=== PATIENT | female | born 1935 | race Caucasian/White ===

== ENCOUNTER 2017-05-14 10:11 | Observation (INO) | payer MEDICARE, OTHER ==
[2017-05-14] MEDS ORDERED: Nitroglycerin 2% Ointment 1 INCH/1 GM Packet ONE (10:57)
[2017-05-14 11:07] LABS: #Basophils 0.1 thou/uL (0.0-0.2); #Eosinphils 0.3 thou/uL (0.0-0.7); #Monocytes 0.5 thou/uL (0.11-0.59); #Neutrophils 4.4 thou/uL (1.40-6.50); %Basophils 1.1 % (0.0-1.0); %Eosinophils 4.2 % (0.0-10.0); %Lymphocytes 27.2 % (21.0-51.0); %Monocytes 6.4 % (0.0-10.0); %Neutrophils 61.1 % (42.0-75.0); Hemoglobin 11.3 g/dL (12.0-16.0); Mean Corpuscular HGB CONC 31.7 g/dL (32.0-36.0); Mean Corpuscular Hemoglobin 28.1 pg (27.0-31.0); Mean Corpuscular Volume 88.6 fl (81.0-99.0); Mean Platelet Volume 7.4 fL (7.4-10.4); Platelet Count 259 thou/uL (130-400); RBC Distribution Width 13.3 % (11.5-14.5); Red Blood Cell (RBC) Count 4.04 mill/uL (4.20-5.40); White Blood Cell (WBC) Count 7.2 thou/uL (4.8-10.8)
--- NOTE | 2017-05-14 11:09 | RAD ---
PORTABLE CHEST: Date: 05-14-17 Provided Clinical History: Dyspnea. FINDINGS: No comparisons. The cardiac silhouette appears enlarged which may be at least partially on the basis of portable tech nique. Chronic appearing lung changes are seen. No focal consolidation, pleural fluid, or pneumothora x apparent. IMPRESSION: No definite evidence for acute cardiopulmonary process. POS: [facility]
[2017-05-14 11:10] LABS: Bilirubin Negative (Negative); Blood, Urine Negative (Negative); Glucose, Urine (Dipstick) Negative (Negative); Leukocyte Negative (Negative); Nitrite Negative (Negative); Protein, Urine (Dipstick) Negative (Neg-Trace); Urobilinogen 0.2 mg/dL (0.2-1.0)
[2017-05-14 11:11] LABS: Clarity Clear (Clear)
[2017-05-14 11:12] LABS: Specific Gravity, Urine 1.005 (1.002-1.036)
[2017-05-14 11:29] LABS: ALT (SGPT) 62 U/L (8-55); AST (SGOT) 54 U/L (5-34); Albumin 3.9 g/dL (3.4-4.8); Alkaline Phosphatase 108 U/L (40-150); Anion Gap 13 mmol/L (10-20); BUN (Urea Nitrogen) 19 mg/dL (9.8-20.1); Bilirubin, Total 0.5 mg/dL (0.2-1.2); CK (CPK) 76 U/L (29-168); Calc. Creatinine Clearance 0 mL/min (70-130); Calcium 9.6 mg/dL (7.8-10.44); Carbon Dioxide 23 mmol/L (23-31); Chloride 98 mmol/L (98-107); Estimated GFR-MDRD 67; Globulin 2.6 g/dL (2.4-3.5); Glucose 162 mg/dL (83-110); Lipase 22 U/L (8-78); Potassium 4.2 mmol/L (3.5-5.1); Protein, Total 6.5 g/dL (6.0-8.3); Sodium 130 mmol/L (136-145)
[2017-05-14 11:33] LABS: CKMB 1.9 ng/mL (0-6.6); Troponin I Less than 0.010 ng/mL (< 0.028)
--- NOTE | 2017-05-14 13:17 | HP ---
PRIMARY CARE PROVIDER: Dr. Cho. HYPERTENSION DOCTOR: Dr. Stoner. SOFTWARE TEAM LEADER: Dr. Porras. HISTORY OF PRESENT ILLNESS: Patient was brought to the [facility] by ambulance from [place]. She states her blood pressure was high running into 200/140 range. She was short of b reath, dyspnea on exertion at 10 feet, much malaise and fatigue for at least a month. She has no ammon e history of orthopnea, paroxysmal nocturnal dyspnea. No chest pain. No fever, sweats or chills. S he states she took 3 of each of her blood pressure medicines last night to try to get her blood press ure down, but her medicines have not been working. PAST MEDICAL HISTORY: Hypertension; diabetes mellitus, type 2, insulin-dependent; hypothyroidism; as thma. She denies any history of CHF or coronary artery disease. CURRENT HOME MEDICATIONS: She has a current list of medicines with her, albuterol inhaler two puffs every 6 hours as needed, Wellbutrin 150 twice a day, Coreg 6.25 mg twice a day, Librium 10 mg a day, Klonopin 1 mg 2 times a day, Yelitza 180 p.r.n., glipizide 5 mg 2 times a day, insulin Lantus 10 unit s subcutaneously twice a day, levothyroxine 112 mcg a day, melatonin 3 mg a day as needed, Protonix 4 0 mg a day, Lyrica 225 mg divided in 3 equal doses daily, Zocor 20 mg a day, Ambien 10 mg at bedtime as needed, atorvastatin unknown dose. ALLERGIES: CODEINE, IBUPROFEN, LEVOFLOXACIN, NSAIDs, SINGULAIR, TRAMADOL, ZESTRIL. PAST SURGICAL HISTORY: Three shoulder surgeries, left total knee replacement, and a hysterectomy. FAMILY HISTORY: Mother with coronary artery disease and congestive heart failure. Father with malnutrition for refusing to eat. SOCIAL HISTORY: , nontobacco user, no alcohol user. CODE STATUS: FULL. Next of kin not identified on this study. REVIEW OF SYSTEMS: GENERAL: Dizzy spells, sitting on the couch, 3 weeks ago only episode, no fainting. No headaches. EYES: She has frequent blurred vision. No double vision, flashing lights. EARS, NOSE, AND THROAT: No ear pain or drainage. No nasal bleeding. No trouble swallowing. CARDIAC: See present illness. RESPIRATIONS: History of asthma. No cough and no wheezing recently. GASTROINTESTINAL: No nausea, vomiting, abdominal pain, diarrhea, or constipation. GENITOURINARY: No hematuria, dysuria, or nocturia. MUSCULOSKELETAL: Swelling in her legs below her knees. No pain in her legs or joints. NEUROLOGIC: No strokes, seizures, or focal weakness. PSYCHIATRIC: She has anxiety, but denies depression. SKIN: Bruises easily on her arms. No rash. HEME/LYMPH: No tender or swollen lymph nodes in the axilla, inguinal, or cervical area. PHYSICAL EXAMINATION: VITAL SIGNS: Initial blood pressure here 200/71, now 149/54; pulse 57, 56; O2 saturation 95% on room air; temperature 97.9; respirations 18. HEENT: Examination of her head, eyes, ears, nose, and throat reveal pupils equal and round with impl ants bilaterally. Extraocular movements are intact. Sclerae white. Tympanic membranes clear. Nose clear. Oral mucous membranes are wet. Dental hygiene is good. NECK: Supple, without jugular venous distention, adenopathy, or thyromegaly. CHEST: Clear to auscultation. She had good breath sounds. It was clear to percussion. She had no focal findings. HEART: Had a regular rate and rhythm. First and second heart sounds are clear. There are no murmur s or gallops. ABDOMEN: Soft. Bowel sounds are normal with no hepatosplenomegaly, no mass, no rebound, no bruits. EXTREMITIES: Reveal 2+ edema with no cyanosis or clubbing. SKIN: Warm and dry with some mild ecchymoses on her arms. HEME/LYMPH: No tender or swollen lymph nodes in axilla, inguinal, or cervical area. NEUROLOGICAL: Cranial nerves II-XII are intact. Deep tendon reflexes markedly diminished. Moves al l extremities. X-RAY FINDINGS: EKG, sinus teena with first-degree block and no significant ST-T abnormality, review ed by me. Chest x-ray shows no CHF, cardiomegaly, or infiltrate, reviewed by me. LABORATORY DATA: Comp metabolic profile: Sodium 130, glucose 162, AST 54, ALT 62, otherwise normal. Cardiac enzymes normal x1. TSH 3.4. Urine is clear. CBC: A minor anemia of 11.3 grams of hemogl obin, white count 7.2 and platelet count 259,000. ADMITTING DIAGNOSES: 1. Uncontrolled hypertension with admission of overmedicating herself last night. 2. Dyspnea, no evidence of congestive heart failure on her current study. No true consistency with angina. However, shortness of breath can be an anginal equivalent in a diabetic. 3. Diabetes mellitus, type 2, insulin-dependent. 4. Asthma. 5. Peripheral neuropathy. 6. Hypothyroidism. PLAN: 1. Serial blood pressure measurements. 2. Reinstitute home medicines. 3. P.r.n. Apresoline and labetalol. 4. Accu-Cheks and sliding scale. 5. Serial cardiac enzymes. 6. BNP and consider echocardiogram.
[2017-05-14] MEDS ORDERED: Dextrose 5% in Water 1,000 ML IV PRN (14:32)
[2017-05-14] MEDS ORDERED: Zolpidem Tartrate 5 MG TAB PO PRN ×2 (14:32→17:26)
[2017-05-14] MEDS ORDERED: Dextrose 50% Abboject 50 ML SYRINGE SLOW IVP PRN (14:32)
[2017-05-14] MEDS ORDERED: Ondansetron HCl/PF 4 MG/2 ML Vial IVP PRN (14:32)
[2017-05-14] MEDS ORDERED: Labetalol HCl 100 MG/20 ML VIAL SLOW IVP PRN (14:32)
[2017-05-14] MEDS ORDERED: HumaLOG 300 UNITS/3 ML VIAL SC PRN (14:32)
[2017-05-14 14:57] VITALS: BMI 34.8
[2017-05-14] MEDS: hydrALAZINE 20 MG/ML VIAL SLOW IVP PRN ×2 (15:49→22:23)
[2017-05-14 17:22] LABS: Troponin I 0.011 ng/mL (< 0.028)
[2017-05-14] MEDS ORDERED: PROVENTIL INHALER 6.7 G (200 INHALATIONS) INH PRN (17:26)
[2017-05-14] MEDS ORDERED: Melatonin 3 MG TAB PO PRN (17:26)
[2017-05-14] MEDS ORDERED: Loratadine 10 MG TAB PO PRN (17:26)
[2017-05-14] MEDS ORDERED: Ondansetron ODT 4 MG TAB PO PRN (17:26)
[2017-05-14] MEDS: Bupropion 150 MG SR TAB PO SCH (18:04)
[2017-05-14] MEDS ORDERED: Non-Formulary Item 1 EACH (Insulin Glargine,Hum.Rec.Anlog [Lantus] 10 UNITS) SQ SCH (21:00)
[2017-05-14] MEDS ORDERED: Atorvastatin Calcium 40 MG TAB PO SCH (21:00)
[2017-05-14] MEDS: Insulin Detemir 100 UNITS/ML 10 UNITS in Pre-Filled Syringe SC SCH (21:27)
[2017-05-14] MEDS: Carvedilol 6.25 MG TAB PO SCH (21:27)
[2017-05-14] MEDS: glipiZIDE 10 MG TAB PO SCH (21:27)
[2017-05-14] MEDS: cloNIDine 0.1 MG TAB PO PRN (21:28)
[2017-05-14] MEDS: Acetaminophen 325 MG TAB PO PRN (21:28)
[2017-05-15 04:57] LABS: #Eosinphils 0.2 thou/uL (0.0-0.7); #Lymphocytes 2.1 thou/uL (1.20-3.40); #Monocytes 0.7 thou/uL (0.11-0.59); #Neutrophils 5.1 thou/uL (1.40-6.50); %Basophils 0.5 % (0.0-1.0); %Eosinophils 2.7 % (0.0-10.0); %Lymphocytes 25.3 % (21.0-51.0); %Neutrophils 62.5 % (42.0-75.0); Hemoglobin 9.8 g/dL (12.0-16.0); Mean Corpuscular HGB CONC 32.8 g/dL (32.0-36.0); Mean Corpuscular Hemoglobin 28.7 pg (27.0-31.0); Mean Corpuscular Volume 87.7 fl (81.0-99.0); Mean Platelet Volume 7.6 fL (7.4-10.4); Platelet Count 280 thou/uL (130-400); RBC Distribution Width 13.3 % (11.5-14.5); Red Blood Cell (RBC) Count 3.41 mill/uL (4.20-5.40); White Blood Cell (WBC) Count 8.2 thou/uL (4.8-10.8)
[2017-05-15 05:05] LABS: Anion Gap 12 mmol/L (10-20); BUN (Urea Nitrogen) 20 mg/dL (9.8-20.1); Calc. Creatinine Clearance 82 mL/min (70-130); Calcium 9.2 mg/dL (7.8-10.44); Carbon Dioxide 25 mmol/L (23-31); Chloride 101 mmol/L (98-107); Estimated GFR-MDRD 74; Glucose 72 mg/dL (83-110); Potassium 3.7 mmol/L (3.5-5.1); Sodium 134 mmol/L (136-145)
[2017-05-15] MEDS: Acetaminophen 325 MG TAB PO PRN (05:37)
[2017-05-15] MEDS ORDERED: Levothyroxine Sodium 112 MCG TAB PO SCH (06:00)
[2017-05-15] MEDS: Bupropion 150 MG SR TAB PO SCH (08:59)
[2017-05-15] MEDS ORDERED: Cyanocobalamin (Vitamin B-12) 1,000 MCG TAB PO SCH (09:00)
[2017-05-15] MEDS ORDERED: Pregabalin 75 MG CAP PO SCH (09:00)
[2017-05-15] MEDS: Carvedilol 6.25 MG TAB PO SCH (09:00)
[2017-05-15] MEDS ORDERED: Ferrous Sulfate 325 MG TAB PO SCH (09:00)
[2017-05-15] MEDS ORDERED: Enoxaparin Sodium 40 MG/0.4 ML SYRINGE SC SCH (09:00)
[2017-05-15] MEDS: glipiZIDE 10 MG TAB PO SCH (09:00)
[2017-05-15] MEDS: Insulin Detemir 100 UNITS/ML 10 UNITS in Pre-Filled Syringe SC SCH (09:06)
--- NOTE | 2017-05-15 09:11 | PDOC.PN ---
- Subjective Encounter Start Date: 05/15/17 Encounter Start Time: 09:06 Subjective: no complaints - Objective Resuscitation Status: Resuscitation Status FULL:Full Resuscitation MAR Reviewed: Yes Vital Signs & Weight: Vital Signs (12 hours) Temp Pulse Resp BP BP Pulse Ox 05/15/17 09:00 155/67 H 05/15/17 07:58 98.7 F 65 18 05/15/17 07:41 98.1 F 61 16 177/75 H 93 L 05/15/17 03:15 98.7 F 65 18 155/67 H 96 05/14/17 23:30 98.2 F 62 16 141/64 H 94 L 05/14/17 22:23 68 205/84 H Weight Weight 190 lb 6.702 oz I&O: 05/14/17 05/15/17 05/16/17 06:59 06:59 06:59 Intake Total 315 Output Total 450 Balance -135 Result Diagrams: 05/15/17 04:03 05/15/17 04:03 Additional Labs: Accuchecks 05/15/17 05/14/17 05/14/17 05:30 20:45 16:45 POC Glucose 72 253 H 248 H Phys Exam - Physical Examination Constitutional: NAD Neck: no JVD Respiratory: clear to auscultation bilateral Cardiovascular: RRR, no significant murmur Gastrointestinal: soft, positive bowel sounds Musculoskeletal: no edema Dx/Plan (1) Hypertension, uncontrolled Code(s): I10 - ESSENTIAL (PRIMARY) HYPERTENSION Status: Acute (2) Dyspnea Code(s): R06.00 - DYSPNEA, UNSPECIFIED Status: Acute (3) DM type 2 (diabetes mellitus, type 2) Status: Acute (4) Asthma Code(s): J45.909 - UNSPECIFIED ASTHMA, UNCOMPLICATED Status: Acute - Plan add apresoline 25mg bid, FU for DC * .
[2017-05-15] MEDS ORDERED: hydrALAZINE 25 MG TAB PO SCH ×2 (10:00→21:00)
[2017-05-15] MEDS: cloNIDine 0.1 MG TAB PO PRN (11:47)
[2017-05-15 12:07] VITALS: TEMP 97.8
[2017-05-15 12:53] VITALS: BP 172/70
--- NOTE | 2017-05-15 13:29 | DIS ---
DATE OF ADMISSION: 05/14/2017 DATE OF DISCHARGE: 05/15/2017 PRIMARY CARE PROVIDER: Dr. Tristan Cho. DISPOSITION: Discharged home. FINAL DIAGNOSES: Uncontrolled hypertension; shortness of breath, resolved; diabetes mellitus, type 2 ; history of asthma. DISCHARGE MEDICATIONS: Hydralazine 25 mg twice a day was added to her regimen, Proventil HFA 2 puffs q.6 hours p.r.n., Wellbutrin 150 mg twice a day, Coreg 6.25 mg twice a day, Librium 10 mg a day, redd nidine 0.1 mg twice a day p.r.n., Lantus 10 units subcutaneously twice a day, glipizide 10 mg p.o. b. i.d., levothyroxine 112 mcg a day, melatonin 3 mg at bedtime, Protonix 40 mg a day, Lyrica 225 mg a d ay, Ambien 10 mg a day, Lipitor 40 mg a day. ALLERGIES: CODEINE, IBUPROFEN, Lisinopril, SINGULAIR, NSAIDS, TRAMADOL. CODE STATUS: FULL CODE status. PENDING AT THE TIME OF DISCHARGE: Nothing. HOSPITAL COURSE: The patient presented with complaints of her blood pressure not being controlled. She stated she was in the 200/140 range, and was short of breath walking 10 feet. She was seen and e valuated in the emergency room. On admission, her blood pressure was 221/93. After addition of Apre soline, she is down to 155/67-172/70. She feels good. Her respirations are 18 and O2 sat 94. Her l aboratory, comp metabolic profile revealed minimal elevations, AST and ALT 54 and 62, blood sugar was 162, sodium 130, otherwise normal. Cardiac enzymes were normal. BNP was 182, which is minimally ab normal. Hemoglobin 11.3, white count 7.2, platelet count 259,000. Today, the patient states she fee ls well. She is ready to go home. I have discussed the situation with her and she is being discharg ed. CONSULTATIONS: None. PROCEDURES: None. ADDITIONAL MEDICINE: Apresoline 25 mg p.o. b.i.d. DISCHARGE PHYSICAL EXAMINATION: CHEST: Clear. HEART: Regular rate and rhythm. VITAL SIGNS: As mentioned. She has been asked to see Dr. Cho in 7 days for followup.
--- NOTE | 2017-06-05 13:20 | EKG ---
Test Reason : HTN Blood Pressure : / mmHG Vent. Rate : 054 BPM Atrial Rate : 054 BPM P-R Int : 232 ms QRS Dur : 080 ms QT Int : 440 ms P-R-T Axes : 075 055 044 degrees QTc Int : 417 ms Sinus bradycardia with 1st degree A-V block Abnormal ECG Artifact Confirmed by LUIS BRIZUELA DO ([id number]), business editor IVAN DELONG ([id number]) on 06/05/2017 1:19:53 PM Referred By: Confirmed By:LUIS BRIZUELA DO
== END 2017-05-15 15:03 | disposition home or self-care (01) ==
LOC: ERS 10:11 → 2SW 14:29
PROVIDERS: ADMIT Internal Medicine; ATTEND Internal Medicine
DX: I10 Essential (primary) hypertension (principal); R06.02 Shortness of breath; J45.909 Unspecified asthma, uncomplicated; E11.42 Type 2 diabetes mellitus with diabetic polyneuropathy; E03.9 Hypothyroidism, unspecified; Z79.4 Long term (current) use of insulin; Z79.899 Other long term (current) drug therapy; Z88.6 Allergy status to analgesic agent; Z88.5 Allergy status to narcotic agent; Z88.8 Allergy status to other drugs, medicaments and biological substances; Z96.652 Presence of left artificial knee joint; Z90.710 Acquired absence of both cervix and uterus; Z98.890 Other specified postprocedural states
CPT/HCPCS: 71010; 80048; 81003; 82550; 82553; 82962 ×2; 83690; 83880; 84484 ×2; 85025; 93005; 93306; 96374; 96376; 99285; G0378; 36415; 36416; 80053; 84443; J0360; J1650; J1815

== ENCOUNTER 2018-03-02 15:47 | Outpatient (CLI) | payer MEDICARE, OTHER ==
--- NOTE | 2018-03-02 17:27 | MRI ---
MRI LUMBAR SPINE WITHOUT CONTRAST: HISTORY: Lumbar radiculopathy. Low back pain with pain radiating down the right leg and knee times several ye ars. COMPARISON: 12/14/2012 TECHNIQUE: An MRI of the lumbar spine is performed without intravenous Gadolinium administration. Multisequenti al, multiplanar imaging is performed. FINDINGS: Limited evaluation on the axial sequence is due to motion degradation. Heterogeneous marrow signal intensity of the lumbar spine, suggesting senescent change. There is mil d loss of vertebral body height and irregularity involving the superior endplate of L1, suggesting a mild chronic compression fracture with a superimposed Schmorl's node. There is nonspecific T2 and ST IR hyperintensity in the L1-L2 disk space. The adjacent endplates are intact. Retrolisthesis, 4.1 mm, of L1 upon L2. Anterolisthesis, 6 mm, of L5 upon S1. Symmetric signal intensity of the psoas muscles. Appropriate signal intensity of the visualized amber d organs. The conus medullaris terminates at the mid to lower aspect of L1. T12-L1: No significant central canal stenosis. The neural foramina are patent bilaterally. L1-L2: Mild loss of disk space height. No significant posterior disk abnormality. No significant c entral canal stenosis. Mild bilateral foraminal narrowing. L2-L3: There is mild loss of disk space height. Minimal left and right paracentral disk bulge. Mil d central canal stenosis. Moderate right and mild left foraminal narrowing. L3-L4: Desiccation without significant loss of disk space height. Generalized disk bulge results in mild central canal stenosis. Mild to moderate bilateral foraminal narrowing. There is a small amou nt of fluid in both facet joints. L4-L5: Desiccation without significant loss of disk space height. Generalized disk bulge results do es not cause any significant central canal stenosis. Mild right and left foraminal narrowing. L5-S1: Desiccation with mild loss of disk space height. There is no significant central canal steno sis. Small amount of fluid in both facet joints. Mild to moderate bilateral foraminal narrowing. IMPRESSION: 1. Degenerative changes in the lumbar spine, as detailed above. 2. Probable annular fissure/annular tear vs disc edema due to degenerative change at the L1-L2 disk space. 3. Spondylolisthesis, as above. POS: [facility]
== END 2018-03-02 15:48 | disposition home or self-care (01) ==
LOC: TBSIIMAG 15:47
PROVIDERS: ATTEND Nurse Practitioner Family
DX: M47.26 Other spondylosis with radiculopathy, lumbar region (principal); M43.16 Spondylolisthesis, lumbar region; M43.17 Spondylolisthesis, lumbosacral region
CPT/HCPCS: 72148